=== PATIENT | male | born 1990 | race Caucasian/White ===

== ENCOUNTER 2021-11-11 08:20 | Emergency (ER) | payer OTHER, SELFPAY ==
[2021-11-11 08:26] VITALS: BP 135/81; PULSE 85; RESP 16; TEMP 36.8; O2SAT 99
--- NOTE | 2021-11-11 08:42 | ED.GENADUL_ITS ---
Discharge Plan Disposition Patient Disposition: HOME Condition: Stable Discharge Details Clinical Impression: Otitis externa of left ear, Otitis media of left ear Primary Care Provider: [facility] ED Provider: Annika Chandra Home Meds and New Rx's Prescriptions: New amoxicillin 500 mg tablet 500 mg PO TID 7 Days Qty: 21 0RF Cipro HC 0.2-1 % drops,suspension 3 drp OT BID 7 Days Qty: 10 0RF methylprednisolone [Medrol (Yash)] 4 mg tablets,dose pack See Rx Instructions .ROUTE .COMPLEX Qty: 21 0RF Rx Instructions: Orally per package directions Discharge Instructions Instructions: Otitis Externa (ED), Ear Infection (ED) Additional Instructions: It is suspected that you have a middle and external ear infection. Prescription for oral antibiotics for your middle ear infection and antibiotic drops for your external ear infection has been sent electronically to your pharmacy. A prescription for steroids to help with inflammation and pain has also been sent electronically to your pharmacy. Take these medications as directed until finished. Drink plenty of fluids and get plenty of rest. Alternate tylenol and motrin as needed and directed for pain. Call your primary doctor at the [facility] for follow-up and for referral to an ear nose and throat doctor for reevaluation. Please quarantine until your COVID-19 test result is available and if confirmed to be negative. Return immediately to the emergency department if you develop any worsening or new concerning symptoms. Stand Alone Forms: Work Release Referrals: Marco Antonio Jung MD [ [facility] STAFF PHYSICIAN] - Discharge Data Discharge Date/Time-TO BE ENTERED AT DEPARTURE: 11/11/21 09:41 Discharge Physician: Annika Chandra Medical Decision Making 30-year-old male presents with nasal congestion and clear nasal discharge with left ear pain, pressure and decreased hearing for the past 3 days. Vitals within normal limits. Patient appears comfortable and nontender. He is breathing comfortably. No sinus tenderness. Normal oropharynx. Left ear canal is erythematous and mildly edematous but able to have a clear view through to TM. TM appears erythematous and dull. There is tenderness to palpation overlying the left tragus. No mastoid tenderness. Lungs clear bilaterally. History and presentation appears consistent with otitis externa and potentially otitis media. Prescription for p.o. amoxicillin, Cipro HC otic drops and Medrol Dosepak sent electronically to his pharmacy. COVID negative. Patient states he is followed at the [facility] and will follow-up there for referral to ENT. He was given our ENT follow-up information if needed. Usual and customary return precautions given prior to discharge. Medical Records Medical records reviewed: Yes I reviewed the patient's medical records. Lab Data Lab results reviewed: Yes I reviewed the patient's lab results. Labs: Laboratory Tests Range/Units 11/11/21 08:45 COVID-19 Source Nasal/Nares SARS-CoV-2 (PCR) (Negative) Negative HPI General Mode of arrival: ambulatory . Date/Time Provider Initiated Documentation: 11/11/21 08:39 . Limitations to Documentation: no limitations . Information obtained by: patient . HPI Narrative: Pt is a 31yo M who presents to the ED w/ a c/o nasal congestion with clear nasal discharge and left ear pain, pressure and decreased hearing for the past few days. Patient states his symptoms started with nasal congestion and clear nasal discharge a few days ago. He states since then he has developed pain and pressure with decreased hearing in his left ear. He states he has been taking [id number] medicine with some relief. He denies significant sore throat, cough, chest pain, shortness of breath. Related Data Home Medications Medication Instructions Recorded Confirmed amoxicillin 500 mg tablet 500 mg PO TID 7 days #21 tabs 11/11/21 ciprofloxacin 0.2 %-hydrocortisone 3 drp otic (ear) BID 7 days #10 mL 11/11/21 1 % ear drops,suspension (Cipro HC) methylprednisolone 4 mg tablets in See Rx Instructions .Route 11/11/21 a dose pack (Medrol (Yash)) .COMPLEX #21 dose pk Previous Rx's Medication Instructions Recorded amoxicillin 500 mg tablet 500 mg PO TID 7 days #21 tabs 11/11/21 ciprofloxacin 0.2 %-hydrocortisone 3 drp otic (ear) BID 7 days #10 mL 11/11/21 1 % ear drops,suspension (Cipro HC) methylprednisolone 4 mg tablets in See Rx Instructions .Route 11/11/21 a dose pack (Medrol (Yash)) .COMPLEX #21 dose pk Allergies Allergy/AdvReac Type Severity Reaction Status Date / Time No Known Allergies Allergy Unverified 11/11/21 08:29 General Stated Complaint: EarProblem ELYSE: 4 Review of Systems All systems reviewed & are unremarkable except as noted in HPI and below Constitutional Constitutional: Denies chills, Denies excessive sweating, Denies fatigue, Denies fever(s), Denies weakness and Denies weight loss Eyes Eyes: Reports system reviewed and no additional complaints, except as documented and Denies blurry vision ENT Ears, Nose, Mouth, and Throat: Denies vertigo, Denies dizziness, Reports otalgia, Reports nasal congestion, Reports sore throat and Denies throat swelling Cardiovascular Cardiovascular: Denies chest pain, Denies syncope, Denies rapid heart rate and Denies dyspnea Respiratory Respiratory: Denies chest congestion, Denies cough, Denies pain on inspiration and Denies dyspnea Gastrointestinal Gastrointestinal: Denies abdominal pain, Denies diarrhea and Denies vomiting Genitourinary Genitourinary: Denies hematuria, Denies dysuria and Denies flank pain Musculoskeletal Musculoskeletal: Denies back pain and Denies joint swelling Integumentary/Breasts Skin/Breast: Denies lesions and Denies rash Neurologic Neurologic: Denies behavioral changes, Denies confusion, Denies vertigo, Denies dizziness, Denies syncope, Denies localized weakness and Denies weakness Psychiatric Psychiatric: Denies behavioral changes, Denies confusion and Denies depression Endocrine Endocrine: Denies excessive sweating and Denies fatigue Hematologic/Lymphatic Hematologic/Lymphatic: Denies easy bruising and Denies lymphadenopathy Allergic/Immunologic Allergic/Immunologic: Denies throat swelling PFSH All Active Problems (Updated 11/11/21 @ 09:10 by Annika Chandra DO) Otitis externa of left ear (Acute) Otitis media of left ear (Acute) Medical History (Updated 11/11/21 @ 09:10 by Annika Chandra DO) No significant past medical history Surgical History (Updated 11/11/21 @ 09:06 by Annika Chandra DO) H/O wisdom tooth extraction Social History Smoking/Tobacco Use Status: Current every day Tobacco Type: cigarettes Smoking risk assessment performed?: Yes Alcohol Intake: never Substance use type: does not use Do you feel safe at home: Yes Do you feel safe in your relationship?: Yes Exam Const General: cooperative and healthy appearing Orientation: alert, awake and oriented x3 HENMT Head: normal to inspection Ears: hearing grossly normal bilaterally, external ears normal, EAC abnormal erythema on the left, edema on the left and EAC tenderness on the left (tragus ) and TM abnormal dull on the left, erythematous on the left and with fluid behind the TM on the left General nose exam: external nose normal Face and sinus: normal facial exam Mouth: oral mucosae normal Teeth and gingiva: dentition normal Throat: posterior oropharynx normal Eyes General: appearance normal, both eyes and all related structures Eyelids: eyelids normal Pupils: PERRL EOM: EOM intact bilaterally Neck Neck: normal visual inspection Lymphatic: no lymphadenopathy noted Chest Chest: normal inspection of the chest Resp Effort & Inspection: normal respiratory effort and able to speak in complete sentences Auscultation: clear to auscultation bilaterally Cardio Rate: regular rate Rhythm: regular rhythm GI Inspection: normal to inspection Palpation: soft, not firm, no guarding, no hepatosplenomegaly, no masses and nontender Auscultation: normal bowel sounds Back/Spine/Pelvis Back: no CVA tenderness Skin General skin exam: no rashes or lesions noted Neuro General: patient alert and patient awake Cognition: normal cognition Speech: speech normal Gait: normal gait Motor: muscle tone normal throughout Sensory Exam: no sensory deficits noted Extrem General: normal to inspection, full ROM and capillary refill normal Psych Appearance: grossly normal Mental Status: mental status grossly normal Speech and Movement: speech and movement normal Affect: normal affect Thought Process: normal Course Vital Signs Vital signs: Vital Signs Temperature 98.2 F 11/11/21 08:26 Pulse 85 11/11/21 08:26 Respiratory Rate 16 11/11/21 08:26 Blood Pressure 135/81 11/11/21 08:26 Pulse Oximetry 99 11/11/21 08:26 Temperature 98.2 F 11/11/21 08:26 Pulse 85 11/11/21 08:26 Respiratory Rate 16 11/11/21 08:26 Respiratory Effort 11/11/21 08:29 Blood Pressure 135/81 11/11/21 08:26 Pulse Oximetry 99 11/11/21 08:26 Pain Level 6 11/11/21 08:29
[2021-11-11 08:50] LABS: Source Nasal/Nares
[2021-11-11 09:49] LABS: COVID-19 PCR Negative (Negative)
--- NOTE | 2021-11-11 11:13 | NUR.NOTE ---
left message for patient to call back about his results:
--- NOTE | 2021-11-11 11:19 | NUR.NOTE ---
patient returned call. Gave patient covid negative results to patient:
== END 2021-11-11 09:41 | disposition home or self-care (01) ==
PROVIDERS: Emergency Provider Physician Assistant
DX: H60.502 Unspecified acute noninfective otitis externa, left ear; H66.92 Otitis media, unspecified, left ear
CPT/HCPCS: 87635; 99283

== ENCOUNTER 2022-10-22 06:00 | Emergency (ER) | payer OTHER, SELFPAY ==
[2022-10-22 06:02] VITALS: BP 141/96; PULSE 101; RESP 16; TEMP 37.3; O2SAT 97
--- NOTE | 2022-10-22 06:08 | ED.GENADUL_ITS ---
Discharge Plan Disposition Patient Disposition: Home Condition: Good Discharge Details Clinical Impression: COVID-19, Transaminitis, Elevated lipase, Dehydration Primary Care Provider: [place], [place] ED Provider: Gasper Jacobs Discharge Instructions Instructions: Dehydration (ED), COVID-19 (Coronavirus Disease 2019) (ED) Additional Instructions: At this time you have COVID-19. Please take the Paxlovid as directed. Please drink plenty of fluids and stay well-hydrated. Take Tylenol and Motrin as needed for pain and fever. You can take 800 mg of Motrin every 6 hours and 1000 mg of Tylenol every 6 hours. These are the maximum doses. Your liver numbers and pancreas numbers were slightly elevated. This is common with viral infections. Please have your labs rechecked by your family doctor in the next 10 to 14 days. If you notice any worsening of your symptoms, or any new symptoms such as vomiting, diarrhea, fever, chills, shortness of breath, chest pain, numbness, weakness, or fainting , please return immediately to the emergency department for reevaluation. Please follow up with your primary care provider as soon as possible for reassessment and reevaluation. As always, it was a pleasure participating in your medical care today. Referrals: [place], [place] [Primary Care Provider] - Medical Decision Making 32-year-old male with no significant past medical history presents today for evaluation of aches and fever. For the past 24 to 36 hours he has had symptoms of body aches, intermittent fevers, nausea. He denies sore throat, neck pain, cough. He has been taking [id number] cough and cold medication. He denies any other complaints at this time. No urinary complaints. No vomiting. No diarrhea. He has not been able to eat or drink anything for the last 24 hours or get sleep. Physical exam demonstrates dry mucous membranes, unremarkable ears and posterior oropharynx. No meningeal signs. Differential is highest for flu COVID or RSV. We will test for these, give a liter of fluid, treat with Toradol, monitor closely and reassess. 7:07 AM Laboratory work-up has returned, no white count or bandemia. Electrolytes stable. Mild transaminitis, lipase mildly elevated at 109, patient is COVID- positive. Suspect the mild transaminitis and the elevated lipase is secondary to COVID. Patient feels better after medication and fluids. Patient has only had symptoms for the last 24 to 36 hours, he is a candidate for Paxlovid. We did give him the option and patient chose to proceed with Paxlovid treatment. Patient will be discharged following completion of his fluids. He will be given a Paxlovid Dosepak to go home with. Recommend follow-up in the next 7 to 10 days for repeat transaminases and lipase. Discussed red flags for which to return. I have extensively reviewed the treatment plan and discharge instructions with the patient. I have addressed all patient concerns at this time. The patient was made aware of what symptoms to monitor for that would warrant a return to the emergency department. Discussed the plan with the patient, they demonstrate verbal understanding and agreement with our assessment and plan at this time. The documentation in this chart was dictated using [employer] dictation software. Please excuse any dictation errors. HPI General Date/Time Provider Initiated Documentation: 10/22/22 06:01 . HPI Narrative: 32-year-old male with no significant past medical history presents today for evaluation of aches and fever. For the past 24 to 36 hours he has had symptoms of body aches, intermittent fevers, nausea. He denies sore throat, neck pain, cough. He has been taking [id number] cough and cold medication. He denies any other complaints at this time. No urinary complaints. No vomiting. No diarrhea. He has not been able to eat or drink anything for the last 24 hours or get sleep. Related Data Allergies Allergy/AdvReac Type Severity Reaction Status Date / Time No Known Allergies Allergy Unverified 10/22/22 06:11 General Stated Complaint: Fever ELYSE: 4 Review of Systems All systems reviewed & are unremarkable except as noted in HPI and below PFSH All Active Problems (Updated 10/22/22 @ 07:13 by Gasper Jacobs DO) COVID-19 (Acute) Transaminitis (Acute) Elevated lipase (Acute) Dehydration (Acute) Medical History No significant past medical history Surgical History H/O wisdom tooth extraction Social History Smoking/Tobacco Use Status: Current every day Tobacco Type: cigarettes Smoking risk assessment performed?: Yes Alcohol Intake: never Substance use type: does not use Do you feel safe at home: Yes Do you feel safe in your relationship?: Yes Exam Narrative Exam Narrative: 1.Const: Well-nourished, Well-developed, appearing stated age 2.Eyes: PERRL, no conjunctival injection, and symmetrical lids. 3.ENT: Atraumatic external nose and ears. No significant erythema in the posterior oropharynx. Notably dry MM. Neck: Symmetric, trachea midline, No thyromegaly. Patient demonstrates good movement of cervical neck. There is no nuchal rigidity, no nuchal tenderness. Patient is able to flex the neck without any difficulty or significant pain. Negative Kernig's and Brudzinski sign. 4.CVS: +S1/S2, No murmurs or gallops. Peripheral pulses 2+ and equal in all extremities. Brisk capillary refill in all extremities. 5.RESP: Unlabored respiratory effort. Clear to auscultation bilaterally. No wheezes rales or rhonchi 6.GI: Soft, Nontender/Nondistended, No hepatosplenomegaly. No guarding or rebound. 7.MSK: Normocephalic/Atraumatic, Extremities w/o deformity or ttp No cyanosis or clubbing, Normal movement of all extremities 8.Skin: Warm, Dry. No rashes or lesions. 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 Sensation grossly intact, no focal neurologic deficits. 10.Psych: (AAO) x3. Appropriate mood and affect Course Vital Signs Vital signs: Vital Signs Temperature 37.3 C 10/22/22 06:02 Pulse 101 H 10/22/22 06:02 Respiratory Rate 16 10/22/22 06:02 Blood Pressure 141/96 H 10/22/22 06:02 Pulse Oximetry 97 10/22/22 06:02 Temperature 37.3 C 10/22/22 06:02 Temperature Source Oral 10/22/22 06:02 Pulse 101 H 10/22/22 06:02 Respiratory Rate 16 10/22/22 06:02 Blood Pressure 141/96 H 10/22/22 06:02 Blood Pressure Position Sitting 10/22/22 06:02 Pulse Oximetry 97 10/22/22 06:02 Oxygen Delivery Method Room Air 10/22/22 06:02 Oxygen Flow Rate 0 10/22/22 06:02 Pain Level 6 10/22/22 06:02
[2022-10-22] MEDS: Normal Saline 1,000 ML 1000 ML IV (06:17)
[2022-10-22] MEDS: Ketorolac 15 MG/ML VIAL IVP (06:17)
[2022-10-22 06:20] LABS: Abs Immature Grans 0.02 10^3/uL (0.0-0.06); Absolute Basophil Count 0.04 10^3/uL (0.0-0.2); Absolute Eosinophil Count 0.02 10^3/uL (0.0-0.7); Absolute Lymphocyte Count 1.71 10^3/uL (1.2-3.4); Absolute Monocyte Count 1.14 10^3/uL (0.1-0.8); Absolute Neutrophil Count 4.41 10^3/uL (1.2-6.7); Basophils % 0.5; Eosinophils % 0.3; HGB 16.4 g/dL (13.5-17.5); Immature Grans % 0.3; Lymphocytes % 23.3; MCH 31.2 pg (27.0-33.0); MCHC 34.9 % (32.0-36.0); MCV 89 fL (80-95); MPV 10.3 fL (8.0-11.0); Monocytes % 15.5; Neutrophils % 60.1; Platelet Count 149 10^3/uL (130-400); RBC 5.26 10^6/uL (4.36-5.78); RDW 12.5 % (11.8-14.1); RDW-SD 40.9 fL; WBC 7.34 10^3/uL (4.4-10.8)
[2022-10-22 06:33] LABS: Lipase 109 U/L (16-77)
[2022-10-22 06:37] LABS: ALT 107 U/L (16-63); AST 55 U/L (15-37); Albumin 3.8 g/dL (3.4-5.0); Alkaline Phosphatase 69 U/L (46-116); Anion Gap 7.7 mmol/L (3-11); BUN 10 mg/dL (7-18); Bilirubin, Total 0.3 mg/dL (0.2-1.0); CO2 29.3 mmol/L (21.0-32.0); CREATININE 1.1 mg/dL (0.70-1.30); Calcium 8.5 mg/dL (8.5-10.1); Chloride 104 mmol/L (98-107); Estimated GFR 90.34 (mL/min/1.73m2); Glucose 113 mg/dL (74-106); Potassium 3.7 mmol/L (3.5-5.1); Sodium 141 mmol/L (136-145); Total Protein 7.3 g/dL (6.4-8.2)
[2022-10-22 06:45] LABS: Influenza A PCR Negative (Negative); Influenza B PCR Negative (Negative); RSV PCR Negative (Negative)
[2022-10-22 06:47] LABS: COVID-19 PCR Positive (Negative); Source Nasopharynx
[2022-10-22 07:29] VITALS: BP 133/79; PULSE 89; RESP 18; O2SAT 93
[2022-10-22] MEDS: Lactated Ringers 1,000 ML 1000 ML IV (07:30)
[2022-10-22] MEDS: Ondansetron 4 MG/2 ML VIAL IVP (07:53)
[2022-10-22] MEDS: Ondansetron O.D.T. 4 MG TABEF, 3 TABS/BTL PO (08:38)
== END 2022-10-22 08:34 | disposition home or self-care (01) ==
PROVIDERS: Emergency Provider Student in an Organized Health Care Education/Training Program
DX: R11.0 Nausea (principal); R05.9 Cough, unspecified; U07.1 COVID-19; E86.0 Dehydration; R74.8 Abnormal levels of other serum enzymes; R74.01 Elevation of levels of liver transaminase levels
CPT/HCPCS: 36415; 80053; 83690; 87637; 96361; 96374; 96375; 99284; 85025; J1885; J2405

== ENCOUNTER 2024-03-04 22:06 | Emergency (ER) | payer OTHER, SELFPAY ==
[2024-03-04 22:12] VITALS: BP 170/84; PULSE 84; RESP 19; TEMP 36.3; O2SAT 96
--- NOTE | 2024-03-04 22:33 | ED.GENADUL_ITS ---
Discharge Plan Disposition Patient Disposition: Home Condition: Good Discharge Details Clinical Impression: Tick bite Primary Care Provider: Unknown,Unknown ED Provider: Myriam Wilson Discharge Instructions Instructions: Lyme Disease (DC), Insect Bites and Stings ED Additional Instructions: Your tick was not engorged and was on you for less than 24 hours which means you do need medication to prevent Lyme disease. You can use over the counter hydrocortisone cream on your rash. If your rash gets worse, hot, or has discharge please seek medical attention (PCP, urgent care, or here in the ED) as these are signs of a skin infection. Please followup with your primary care doctor about your blood pressure which is high here in the emergency department today. Return to the emergency department for new or worsening symptoms including fever, joint pain, headache, worsening rash, or if you have any other concerns. HPI General Mode of arrival: ambulatory . Date/Time Provider Initiated Documentation: 03/04/24 22:08 . Limitations to Documentation: no limitations . Information obtained by: patient and family . HPI Narrative: 33yo previously healthy male presenting after tick bite. Noted tick yesterday evening behind his right knee. Removed it and it appeared intact. It was not significantly engorged. He thinks it was in place for 3-8 hours. Is confident it was not in there the night prior when he last showered. Has noted some warmth, redness, and itchiness at the site of the bite. No fevers, chills, rash elsewhere, joint pain, headache, nausea, vomiting, or other concerns. He is otherwise in his usual state of health. Related Data Allergies Allergy/AdvReac Type Severity Reaction Status Date / Time No Known Allergies Allergy Unverified 03/04/24 22:16 General Stated Complaint: InsectBite ELYSE: 4 Review of Systems Narrative: see HPI Exam Narrative Exam Narrative: General: Alert, well appearing, well nourished, in no acute distress. Head: Normocephalic, atraumatic Neck: Trachea midline, ?Neck supple. Cardiac: ?No cyanosis. Well perfused. Resp: No respiratory distress. Speaking in full sentences. Abd: ?Non-distended Extremities: ?No deformities.? No peripheral edema. Right popliteal fossa with circular rash ~4cm in diameter, erythematous, with central lesion consistent with insect bite. No central clearing. No discharge, warmth, or purulence. No joint effusion or tenderness. Neurologic: GCS 15. ? Moves all extremities freely against gravity Course Vital Signs Vital signs: Vital Signs Temperature 36.3 C L 03/04/24 22:12 Pulse 84 03/04/24 22:12 Respiratory Rate 19 03/04/24 22:12 Blood Pressure 170/84 H 03/04/24 22:12 Pulse Oximetry 96 03/04/24 22:12 Temperature 36.3 C L 03/04/24 22:12 Temperature Source Temporal Artery Scan 03/04/24 22:12 Pulse 84 03/04/24 22:12 Respiratory Rate 19 03/04/24 22:12 Respiratory Effort Normal, Non-Labored 03/04/24 22:25 Blood Pressure 170/84 H 03/04/24 22:12 Blood Pressure Position Sitting 03/04/24 22:12 Pulse Oximetry 96 03/04/24 22:12 Oxygen Delivery Method Room Air 03/04/24 22:12 Oxygen Flow Rate 0 03/04/24 22:12 Pain Level 2 03/04/24 22:12 Medical Decision Making 33yo previously healthy male presenting after tick bite. Tick removed yesterday evening, not engorged, estimated to be in place no longer than 8 hours and definitely not greater than 24 hours. Hypertensive on arrival, vital signs otherwise reassuring. On exam he has an erythematous rash to his right popliteal fossa consistent with localized reaction to insect bite. Does not appear infected. Duration of tick exposure does not warrant Lyme prophylaxis. No indication for bloodwork at this time. Advised hydrocortisone cream at home, PCP followup for blood pressure. Discharged home; discharge instructions and return precautions were reviewed with patient who verbalized understanding. All questions were answered and he is in full agreement with the plan. Quality:SDOH Health Related Social Needs: No Data to Display PFSH All Active Problems (Updated 03/04/24 @ 22:36 by Myriam Wilson MD) Tick bite (Acute) COVID-19 (Acute) Medical History No significant past medical history Surgical History H/O wisdom tooth extraction Social History Smoking/Tobacco Use Status: Current every day Tobacco Type: cigarettes Smoking risk assessment performed?: Yes Alcohol Intake: never Drug use: Never Substance use type: does not use Housing: house Do you feel safe at home: Yes Do you feel safe in your relationship?: Yes
== END 2024-03-04 22:40 | disposition home or self-care (01) ==
LOC: ER 22:53
PROVIDERS: Emergency Provider Student in an Organized Health Care Education/Training Program
DX: S80.261A Insect bite (nonvenomous), right knee, initial encounter (principal); R21 Rash and other nonspecific skin eruption; F17.210 Nicotine dependence, cigarettes, uncomplicated; W57.XXXA Bitten or stung by nonvenomous insect and other nonvenomous arthropods, initial encounter
CPT/HCPCS: 99283; 99284